=== PATIENT | male | born 1975 | race Caucasian/White ===

== ENCOUNTER → 2022-04-02 13:42 | Outpatient (CLI) | payer OTHER, SELFPAY ==
[2022-04-03 08:09] LABS: Immunoglobulin A 260 mg/dL (90-386)
[2022-04-03 20:09] LABS: Tissue Transglutaminase IgA <2 U/mL (0-3)
== END ==
PROVIDERS: Referring Provider Physician Assistant; Visit Provider Physician Assistant
DX: K52.9 Noninfective gastroenteritis and colitis, unspecified (principal); Z12.11 Encounter for screening for malignant neoplasm of colon
CPT/HCPCS: 36415; 82784; 83516

== ENCOUNTER → 2022-04-17 07:05 | Outpatient (CLI) | payer OTHER, SELFPAY ==
[2022-04-18 14:08] LABS: Fats, Neutral Normal (.); Fats, Total Normal (.)
== END ==
PROVIDERS: Referring Provider Internal Medicine Gastroenterology; Visit Provider Internal Medicine Gastroenterology
DX: K52.9 Noninfective gastroenteritis and colitis, unspecified (principal); Z12.11 Encounter for screening for malignant neoplasm of colon
CPT/HCPCS: 82705; 87329